=== PATIENT | female | born 1995 | race Caucasian/White ===

== ENCOUNTER 2021-10-02 12:36 | Inpatient (IN) | payer OTHER, SELFPAY ==
[~2021-10-02] VITALS: Ht 162.6 cm; Wt 123.8 kg
[2021-10-02] MEDS ORDERED: LR 1,000 ML IV SCH (13:00)
[2021-10-02] MEDS ORDERED: LR 1,000 ML IV ONE (13:00)
[2021-10-02] MEDS ORDERED: OXYTOCIN/0.9 % SODIUM CHLORIDE 1,000 ML IV SCH (13:00)
[2021-10-02] MEDS ORDERED: TERBUTALINE SULFATE 1 MG/ML VIAL SUBCUT ONE (13:00)
[2021-10-02] MEDS ORDERED: AMPICILLIN SODIUM 2 GM in NS 100 ML IV ONE (13:00)
[2021-10-02] MEDS ORDERED: MORPHINE SULFATE 10 MG/ML VIAL IVP PRN (13:00)
[2021-10-02 15:45] LABS: BASOPHILS % (AUTO) 0.2 % (0.0-2.0); EOSINOPHILS # (AUTO) 0.1 K/uL (0.0-0.4); EOSINOPHILS % (AUTO) 0.7 % (0.0-4.0); HEMATOCRIT 30.8 % (36-48); LYMPHOCYTES # (AUTO) 1.6 K/uL (1.0-5.5); LYMPHOCYTES % (AUTO) 18.9 % (20.5-51.5); MEAN CORPUSCULAR HEMOGLOBIN 25 pg (27-31); MEAN CORPUSCULAR HGB CONC 32 % (32-36); MEAN CORPUSCULAR VOLUME 76 fL (79.0-98.0); MONOCYTES # (AUTO) 0.5 K/uL (0.0-1.0); MONOCYTES % (AUTO) 6.4 % (1.7-9.3); NEUTROPHILS # (AUTO) 6.1 K/uL (1.8-7.7); NEUTROPHILS % (AUTO) 73.8 % (40.0-70.0); PLATELET COUNT (AUTO) 194 K/uL (130-430); RED BLOOD CELL COUNT(AUTO) 4.07 MIL/uL (4.2-6.2); RED CELL DISTRIBUTION WIDTH 17.6 % (9.0-15.0); WHITE BLOOD COUNT (AUTO) 8.2 K/uL (4.8-10.8)
[2021-10-02] MEDS ORDERED: AMPICILLIN SODIUM 1 GM in NS 50 ML IV SCH (17:00)
[2021-10-02] MEDS: NALBUPHINE HCL 10 MG/ML AMP IVP PRN (17:14)
[2021-10-02 17:34] VITALS: BP_SYST 125
[2021-10-02] MEDS ORDERED: ROPIVACAINE HCL/PF 0.2% 200 ML ONE (20:00)
[2021-10-02] MEDS ORDERED: fentaNYL CITRATE/PF 100 MCG/2 ML AMP ONE (20:00)
[2021-10-02] MEDS ORDERED: LR 500 ML IV ONE (20:45)
[2021-10-02] MEDS ORDERED: FENT2mCg/mL-ROPIVA0.2%/NS EPID 200 ML EP SCH (20:45)
[2021-10-03] MEDS ORDERED: AMPICILLIN SODIUM 2 GM in NS 100 ML IV ONE ×2
[2021-10-03] MEDS ORDERED: AMPICILLIN SODIUM 1 GM VIAL ONE (04:05)
[2021-10-03] MEDS: AMPICILLIN SODIUM 1 GM in NS 50 ML IV SCH ×2 (04:10→09:43)
[2021-10-03] MEDS: NALBUPHINE HCL 10 MG/ML AMP IVP PRN ×2 (04:58→09:20)
[2021-10-03] MEDS ORDERED: ONDANSETRON HCL 4 MG/2 ML VIAL IVP PRN ×2 (07:45→13:45)
[2021-10-03] MEDS ORDERED: ONDANSETRON HCL 4 MG/2 ML VIAL ONE (07:51)
[2021-10-03] MEDS ORDERED: CEFAZOLIN 2 GM IVPB PREMIX 50 ML IV ONE (10:45)
[2021-10-03] MEDS ORDERED: NS IRRIG SOLN 1000 ML IR ONE (12:50)
[2021-10-03] MEDS ORDERED: BUPIVACAINE /DEX PF 0.75% SPINAL 2 ML AMP INJ ONE (12:50)
[2021-10-03] MEDS ORDERED: LR 1,000 ML IV.SOLN IV ONE (12:50)
[2021-10-03] MEDS ORDERED: METOCLOPRAMIDE HCL 10 MG/2 ML VIAL IVP ONE (12:50)
[2021-10-03] MEDS ORDERED: ePHEDrine sulfate 50 MG/ML VIAL IVP ONE (12:50)
[2021-10-03] MEDS ORDERED: DEXAMETHASONE SOD PHOSPHATE 4 MG/ML VIAL IVP ONE (12:50)
[2021-10-03] MEDS ORDERED: OXYTOCIN 10 UNIT/ML VIAL IV ONE (12:50)
[2021-10-03] MEDS ORDERED: MORPHINE SULFATE 10 MG/ML VIAL IVP ONE (12:50)
[2021-10-03] MEDS ORDERED: ONDANSETRON HCL 4 MG/2 ML VIAL IVP ONE (12:50)
[2021-10-03] MEDS ORDERED: HYDROcodone/ACETAMIN 5-325 MG TAB (NORCO/ VICODIN) PO PRN (13:00)
[2021-10-03] MEDS ORDERED: HYDROmorphone 1 MG/ML INJ. CARTRIDGE IVP PRN ×2 (13:45)
[2021-10-03] MEDS ORDERED: METOCLOPRAMIDE HCL 10 MG/2 ML VIAL IVP PRN (13:45)
[2021-10-03] MEDS ORDERED: DIPHENHYDRAMINE INJ 50 MG/ML VIAL IM PRN (13:45)
[2021-10-03] MEDS ORDERED: KETOROLAC TROMETHAMINE 30 MG VIAL IVP PRN (13:45)
[2021-10-03] MEDS ORDERED: NALOXONE HCL 0.4 MG/ML AMP (NARCAN) IVP PRN ×2 (13:45)
[2021-10-03 13:50] VITALS: BP_SYST 133
[2021-10-04] MEDS: OXYCODONE/ACETAMINOPHEN 5-325 TABLET PO PRN ×4 (05:42→21:11)
[2021-10-04 07:51] LABS: BASOPHILS % (AUTO) 0.2 % (0.0-2.0); EOSINOPHILS % (AUTO) 0.3 % (0.0-4.0); HEMATOCRIT 25.7 % (36-48); HEMOGLOBIN 8.4 g/dL (12.0-16.0); LYMPHOCYTES # (AUTO) 1.7 K/uL (1.0-5.5); LYMPHOCYTES % (AUTO) 18.9 % (20.5-51.5); MEAN CORPUSCULAR HEMOGLOBIN 25 pg (27-31); MEAN CORPUSCULAR HGB CONC 33 % (32-36); MEAN CORPUSCULAR VOLUME 76 fL (79.0-98.0); MONOCYTES # (AUTO) 0.7 K/uL (0.0-1.0); MONOCYTES % (AUTO) 8.1 % (1.7-9.3); NEUTROPHILS # (AUTO) 6.7 K/uL (1.8-7.7); NEUTROPHILS % (AUTO) 72.5 % (40.0-70.0); PLATELET COUNT (AUTO) 171 K/uL (130-430); RED BLOOD CELL COUNT(AUTO) 3.39 MIL/uL (4.2-6.2); RED CELL DISTRIBUTION WIDTH 17.7 % (9.0-15.0); WHITE BLOOD COUNT (AUTO) 9.2 K/uL (4.8-10.8)
[2021-10-04] MEDS: IBUPROFEN 600 MG TABLET PO SCH (17:49)
[2021-10-05] MEDS: IBUPROFEN 600 MG TABLET PO SCH ×3 (00:17→12:26)
[2021-10-05] MEDS: OXYCODONE/ACETAMINOPHEN 5-325 TABLET PO PRN ×5 (00:17→16:05)
--- NOTE | 2021-10-05 15:29 | NUR ---
Dietitian Recommendations * Continue regular diet LP, RD Please refer to Nutrition Assessment for details. Addendum: 10/05/21 at [address] Amended: Links added.
== END 2021-10-05 17:44 | disposition home or self-care (01) | DRG 540 ==
LOC: OBSVTOIN 12:36 → SPU 12:36
PROVIDERS: ADMIT Obstetrics & Gynecology; ATTEND Obstetrics & Gynecology
PROC: 10D00Z1 Extraction of Products of Conception, Low, Open Approach (ICD-10-PCS; principal; 2021-10-03 12:57)
DX: O32.8XX0 Maternal care for other malpresentation of fetus, not applicable or unspecified (principal); O99.214 Obesity complicating childbirth; K80.20 Calculus of gallbladder without cholecystitis without obstruction; O99.62 Diseases of the digestive system complicating childbirth; Z20.822 Contact with and (suspected) exposure to COVID-19; Z3A.39 39 weeks gestation of pregnancy; Z37.0 Single live birth
CPT/HCPCS: 36415; 76700-TC; 76805-TC; 81002; 85025; 86592; 86886; 86900; 86901; 94760; J0290; J0690; J1100; J1885; J2270; J2300; J2405; J2590; J2765; J3010; J3490; J7120